=== PATIENT | female | born 1965 | race Caucasian/White ===

== ENCOUNTER → 2020-01-19 10:14 | Outpatient (CLI) | payer BC, SELFPAY ==
--- NOTE | ~2020-01-19 | US_ITS ---
EXAMINATION: US transvaginal DATE: 01/19/2020 11:00 INDICATION: Thickened endometrial complex TECHNIQUE: Multiple transabdominal and endovaginal sonographic images of the pelvis were obtained. COMPARISON: 01/31/2019 FINDINGS: The uterus measures 6.9 x 2.5 x 3.7 cm. The endometrial complex measures 3 mm in thickness which is normal. The ovaries are not visualized. There is no free fluid in the pelvis. IMPRESSION: 1. Unremarkable postmenopausal uterus with normal endometrial complex thickness of 3 mm. Reviewed, dictated and finalized at location H. LTY BALLOON ASSEMBLER AND PACKER
== END ==
PROVIDERS: Visit Provider Nurse Practitioner
DX: R93.89 Abnormal findings on diagnostic imaging of other specified body structures (principal)
CPT/HCPCS: 76830

== ENCOUNTER 2021-05-22 14:52 | Outpatient (CLI) | payer BC, SELFPAY ==
--- NOTE | ~2021-05-22 | MR_ITS ---
EXAMINATION: MR brain/brain stem wo con DATE: 05/22/2021 15:22 INDICATION: Migraine headache. TECHNIQUE: Magnetic resonance imaging (MRI) of the brain and brainstem was performed without intraven ous contrast. Sequences included sagittal and axial T1-weighted FSE, axial diffusion-weighted FS EPI, axial T2*-weighted GRE, axial T2-weighted FLAIR Propeller, and axial T2-weighted Propeller. Apparent diffusion coefficient (ADC) maps were created. COMPARISON: Brain MRI 01/18/2008 FINDINGS: There is no intracranial hemorrhage, acute infarction, or abnormal intracranial mass lesion . The ventricles are normal in size. The mastoid air cells are normal. The orbits are normal. There i s mild mucosal thickening in the ethmoid sinuses. IMPRESSION: 1. Normal brain. Reviewed, dictated and finalized at location A. IMPRESSION: 1. Normal brain.
== END 2021-05-22 14:53 ==
LOC: MICIMG 14:53
PROVIDERS: PCP Internal Medicine; Visit Provider Internal Medicine
DX: G43.909 Migraine, unspecified, not intractable, without status migrainosus (principal)
CPT/HCPCS: 70551

== ENCOUNTER → 2021-05-31 00:25 | Outpatient (CLI) | payer BC, SELFPAY ==
[2021-05-31 14:04] LABS: SARS-CoV-2 RNA PCR Negative
== END ==
PROVIDERS: PCP Internal Medicine; Visit Provider Internal Medicine Gastroenterology
DX: Z01.812 Encounter for preprocedural laboratory examination (principal); Z20.822 Contact with and (suspected) exposure to COVID-19
CPT/HCPCS: C9803; U0003; U0005

== ENCOUNTER 2021-06-04 01:00 | Day surgery (SDC) | payer BC, SELFPAY ==
[2021-05-28 14:54] VITALS: BMI 35.5
--- NOTE | 2021-06-04 08:14 | WPDANESEPPF ---
Anes - Initial Pre Proc Eval Procedure: Operation Date: 06/04/21 11:15 Proposed Procedures p Esophagogastroduodenoscopy & Screening Colonoscopy - Edward Gil MD Date/Time: 06/04/21 08:14 Surgeon: Edward Gil MD Pre Op Diagnosis: GERD, neoplasm screening Patient Data Age: 55 Gender: F Height: 1.57 m Weight: 88.2 kg Allergies Allergy/AdvReac Type Severity Reaction Status Date / Time morphine AdvReac Intermediate Nausea and Verified 06/04/21 10:23 Vomiting COMPAZINE Allergy Severe Cramping Uncoded 06/04/21 10:23 of the Muscles Home Medications Medication Instructions Recorded Confirmed Type omeprazole 20 mg PO DAILY 05/28/21 05/28/21 History sertraline 25 mg PO DAILY 05/28/21 05/28/21 History ubrogepant [Ubrelvy] 50 mg PO ONCE PRN 05/28/21 05/28/21 History Patient hx anesthesia problems: none Family hx anesthesia problems: none Results Review: All pre-operative results and documents have been reviewed as part of the pre-operative evaluation. [facility] Past Medical History Medical History (Updated 06/04/21 @ 08:15 by Tramaine Kohler MD) Chronic GERD Depression Migraine Obesity Family History Family History (Updated 11/02/13 @ 07:13 by DOCTOR UNKNOWN) Father Family history of lung cancer Family history of malignant neoplasm of brain Family history of heart disease in male family member before age 55 Mother Family history of heart disease in male family member before age 55 Social History Social History Smoking status: Never smoker Alcohol intake: current Alcohol use details: drinks rarely - once or twice a year Substance use: never Substance use type: does not use Living arrangements: with family Spiritual care concerns: No Anes - Eval Final PreProcedure Day of Procedure 06/04/21 08:14 Patient weight: obese Heart: regular rate and rhythm Lungs: clear to auscultation and normal air movement Airway: Mallampati scale class II Neurological: alert and oriented Last oral intake: >/= 8 hours ASA classification: II Emergent: no Anesthetic plan: proceed Anesthesia type and monitoring: general GIVS Results Review: All pre-operative results and documents have been reviewed as part of the pre-operative evaluation. Informed Consent: The patient's anesthetic plan and its attendant risks and benefits were discussed with the patient/family/POA. Questions were solicited and answers provided to the satisfaction of the patient/family/POA.
[2021-06-04 10:24] VITALS: BP 115/73; PULSE 84; RESP 18; TEMP 36.3; O2SAT 98
[2021-06-04] MEDS: LACTATED RINGERS 1,000 ML 150 ML IV CONT (10:37)
--- NOTE | 2021-06-04 10:47 | WPDGICN ---
Assessment and Plan Assessment and plan (1) GERD (gastroesophageal reflux disease): Code(s): K21.9 - Gastro-esophageal reflux disease without esophagitis Status: Acute Assessment and Plan: EGD with possible biopsy or dilatation or cautery. (2) Colon cancer screening: Code(s): Z12.11 - Encounter for screening for malignant neoplasm of colon Status: Acute Assessment and Plan: Colonoscopy with possible biopsy or polypectomy or cautery or injection of substances. GI Consult Note Consult date/time: 06/04/21 10:47 HPI: Dinorah Bo is a 55 year old female with chronic acid reflux symptoms. She has been on Prilosec for years. If she skips even 1 dose she has severe symptoms. Basically her symptoms are so our this and indigestion her upper abdomen particularly when she wakes up in her stomach is empty. She also often gets burning in the substernal area but Prilosec does prevent that. She was recently switched to omeprazole but does not feel it is as effective as the [id number] Prilosec. She is due for colon cancer screening. Her last colonoscopy was about 15 years ago and she was diagnosed with irritable bowel syndrome. She does tend to have urge to have a bowel movement almost immediately after most meals Review of Systems Review of Systems: All systems reviewed & are unremarkable except as noted in HPI and below PMFSH Past Medical History Medical History Chronic GERD Depression Migraine Obesity Family History Family History Father Family history of lung cancer Family history of malignant neoplasm of brain Family history of heart disease in male family member before age 55 Mother Family history of heart disease in male family member before age 55 Social History Social History Smoking status: Never smoker Alcohol intake: current Alcohol use details: drinks rarely - once or twice a year Substance use: never Substance use type: does not use Living arrangements: with family Spiritual care concerns: No Meds Home Medications and Allergies Home Medications Medication Instructions Recorded Confirmed Type omeprazole 20 mg PO DAILY 05/28/21 05/28/21 History sertraline 25 mg PO DAILY 05/28/21 05/28/21 History ubrogepant [Ubrelvy] 50 mg PO ONCE PRN 05/28/21 05/28/21 History Allergies Allergy/AdvReac Type Severity Reaction Status Date / Time morphine AdvReac Intermediate Nausea and Verified 06/04/21 10:23 Vomiting COMPAZINE Allergy Severe Cramping Uncoded 06/04/21 10:23 of the Muscles Vital Signs Vital Signs - 24 hr 06/04/21 10:24 Temperature 36.3 C L Pulse Rate 84 Respiratory Rate 18 Blood Pressure 115/73 Pulse Oximetry 98 Exam Const: General: alert Orientation/consciousness: patient oriented x3 Resp: Auscultation: clear to auscultation bilaterally Cardio: Rhythm: regular rhythm GI: GI Palp: Yes Soft to palpation and No Tenderness to palpation present (GI) Neuro: General: patient oriented x3
[2021-06-04 11:48] VITALS: BP 113/63; PULSE 81; RESP 18; O2SAT 97
[2021-06-04 11:58] VITALS: BP 104/68; PULSE 67; RESP 18; O2SAT 98
--- NOTE | 2021-06-04 11:59 | SUR.OPER ---
EGD started at 1123 and ended at 1127. Colonoscopy started at 1136 and ended at 1145.
[2021-06-04 12:08] VITALS: BP 128/81; PULSE 65; RESP 22; O2SAT 100
== END 2021-06-04 12:28 | disposition home or self-care (01) ==
PROVIDERS: PCP Internal Medicine; Visit Provider Internal Medicine Gastroenterology
PROC: 0DJ08ZZ Inspection of Upper Intestinal Tract, Via Natural or Artificial Opening Endoscopic (ICD-10-PCS; CPT 43235; principal; 2021-06-04 11:15)
DX: Z12.11 Encounter for screening for malignant neoplasm of colon (principal); D12.4 Benign neoplasm of descending colon; K31.7 Polyp of stomach and duodenum; K21.9 Gastro-esophageal reflux disease without esophagitis; F32.9 Major depressive disorder, single episode, unspecified; E66.9 Obesity, unspecified; Z68.34 Body mass index [BMI] 34.0-34.9, adult
CPT/HCPCS: 45381; 45385; 43251; 88305; J2704; J7120

== ENCOUNTER → 2021-08-01 09:59 | Outpatient (CLI) | payer BC, SELFPAY ==
--- NOTE | ~2021-08-01 | DEXA_ITS ---
Bone Density Report Name: KIRSTEN POWELL Age: 56 Sex: Female Ethnicity: White Date of : 1965 Indication: osteopenia; postmenopausal Referring Provider: ApoorvaLisette Study: Bone densitometry was performed. Exam Date: August 01, 2021 Accession number: [id number] Bone Density: Region BMD T-score Z-score Classification AP Spine (L1-L4) 0.812 -2.1 -1.1 Osteopenia Femoral Neck (Left) 0.835 -0.1 0.9 Normal Total Hip (Left) 0.769 -1.4 -0.7 Osteopenia Femoral Neck (Right) 0.672 -1.6 -0.5 Osteopenia Total Hip (Right) 0.769 -1.4 -0.7 Osteopenia Total Hip Mean 0.769 -1.4 -0.7 Osteopenia World Health Organization criteria for BMD impression classify patients as: Normal (T-score at or above -1.0), Osteopenia (T-score between -1.0 and -2.5), or Osteoporosis (T-score at or below -2.5). 10-year Fracture Risk(1): Major Osteoporotic Fracture 6.1% Hip Fracture 0.5% Reported Risk Factors: [place] (), Neck BMD=0.672, BMI=35.6 (1) FRAX(R) Version 3.08. Fracture probability calculated for an untreated patient. Fracture probability may be lower if the patient has received treatment. Previous Exams: Region Exam Age BMD T-score BMD Change BMD Change Date g/cm2 vs Baseline vs Previous AP Spine(L1-L4) 08/01/2021 56 0.812 -2.1 -0.039* -0.039* 01/31/2019 53 0.851 -1.8 Total Hip(Left) 08/01/2021 56 0.769 -1.4 -0.021 -0.021 01/31/2019 53 0.790 -1.2 Total Hip(Right) 08/01/2021 56 0.769 -1.4 -0.007 -0.007 01/31/2019 53 0.776 -1.4 *Denotes significance at 95% confidence level, LSC for AP Spine = 0.022 g/cm2, LSC for Total Hip = 0.027 g/cm2 Clinical Information Provided by Patient: Patient maximum height was 62 Menopause Age: 52 No regular weight bearing exercise Drinks caffeinated beverages Onset of menses at age 11 Number of children 1 Impression: The patient has low bone mass, based on the Total Spine T-score. The patient has an estimated ten-year risk of hip fracture of 0.5% and an estimated ten-year risk of major fracture of 6.1%, based on the WHO FRAX algorithm. The BMD for the AP Spine(L1-L4) decreased, changing by -0.039 since the last DXA exam. Discussion: BONE DENSITY IS LOW AT ONE OR MORE SKELETAL SITES. This patient's lowest T-score is low at one or more skeletal sites. It meets the World Health Organization's (WHO) criteria for ?low bone mass? (T-score betw
--- NOTE | ~2021-08-01 | MM_ITS ---
EXAMINATION: MM scrn jefferson implant BI w adalid HISTORY: Screening mammogram TECHNIQUE: Craniocaudal and mediolateral oblique 3-D tomosynthesis images with implant displacement a nd synthetic 2-D images were generated. Craniocaudal and mediolateral oblique views of the breasts wi thout implant displacement were obtained using full field digital mammography. CAD analysis was submi tted and interpreted. COMPARISON: 01/31/2019 diagnostic bilateral mammogram and limited right breast ultrasound examination bilateral implant screening mammogram BREAST PARENCHYMAL COMPOSITION: There are scattered areas of fibroglandular density. FINDINGS: Status post bilateral augmentation mammoplasty. Stable circumscribed approximately 3.6 x 5.6 mm opacity is noted posteriorly in the mid to lower oute r right breast, stable since 01/31/2019. There is no evidence of suspicious mass, calcification, or a rchitectural distortion to suggest malignancy in either breast. There has been no suspicious interval change. IMPRESSION: 1. No mammographic evidence of malignancy. 2. Recommend routine screening mammography in one year. BI-RADS Category 2: Benign finding(s). Reviewed, dictated and finalized at location A.
== END ==
PROVIDERS: PCP Internal Medicine; Visit Provider Internal Medicine
DX: Z12.31 Encounter for screening mammogram for malignant neoplasm of breast (principal); Z13.820 Encounter for screening for osteoporosis; Z78.0 Asymptomatic menopausal state; M85.88 Other specified disorders of bone density and structure, other site; M85.851 Other specified disorders of bone density and structure, right thigh; M85.852 Other specified disorders of bone density and structure, left thigh
CPT/HCPCS: 77063; 77067; 77080

== ENCOUNTER → 2023-02-02 09:20 | Outpatient (CLI) | payer BC, SELFPAY ==
--- NOTE | ~2023-02-02 | MM_ITS ---
EXAMINATION: MM diag jefferson implant BI w adalid HISTORY: Bilateral breast pain TECHNIQUE: ML, MLO and CC implant displaced 3-D tomosynthesis images of both breasts. were performed and synthetic 2-D images were generated. ML, MLO and CC implant views. CAD analysis was submitted and interpreted. COMPARISON: 08/01/2021ilateralimplantscreening mammogram 19,019 diagnostic right mammogram and ri t breast ultrasound FINDINGS: Bilateral subpectoral saline implants. In the posterior lower outer right breast there is stable or slightly enlarged circumscribed approxim ately 4.5 x 7.5 mm opacity with halo sign, benign in mammographic appearance. No suspicious mass, architectural distortion, malignant calcification, skin thickening or retraction or significant new or developing density of either breast is noted. IMPRESSION: 1. Benign finding 2. Routine annual mammographic screening is recommended BI-RADS Category 2: Benign finding(s). Reviewed, dictated and finalized at location A. ROOM SALES CONSULTANT
== END ==
PROVIDERS: PCP Nurse Practitioner; Visit Provider Nurse Practitioner
DX: N64.4 Mastodynia (principal)
CPT/HCPCS: 77062; 77066; G0279

== ENCOUNTER 2023-02-02 09:28 | Outpatient (CLI) | payer BC, SELFPAY ==
--- NOTE | ~2023-02-02 | MR_ITS ---
EXAMINATION: MR brain/brain stem wo con DATE: 02/02/2023 10:54 INDICATION: Migraine headache. TECHNIQUE: Magnetic resonance imaging (MRI) of the brain and brainstem was performed without intraven ous contrast. COMPARISON: Brain MRI 05/22/2021 FINDINGS: There are a few foci of nonspecific increased T2-weighted signal intensity in the cerebral white matter, which is within normal limits for the patient's age. There is no intracranial hemorrhag e, acute infarction, or abnormal intracranial mass lesion. The ventricles are normal in size. The par anasal sinuses are clear. The orbits are normal. The mastoid air cells are normal. IMPRESSION: 1. Normal brain. Reviewed, dictated and finalized at location A. SETTER IMPRESSION: 1. Normal brain.
== END 2023-02-02 09:29 ==
PROVIDERS: PCP Internal Medicine; Visit Provider Internal Medicine
DX: G43.909 Migraine, unspecified, not intractable, without status migrainosus (principal)
CPT/HCPCS: 70551

== ENCOUNTER 2023-03-05 20:12 | Emergency (ER) | payer BC, SELFPAY ==
--- NOTE | ~2023-03-05 | XR_ITS ---
EXAMINATION: XR chest 2V DATE: 03/05/2023 20:31 INDICATION: Chest pain TECHNIQUE: PA and lateral views of the chest were obtained. COMPARISON: Chest radiograph dated 08/04/2007 FINDINGS: The lungs remain clear with no focal airspace opacities, pulmonary edema, pleural effusion or pneumot horax. The cardiomediastinal silhouette is normal. Visualized bones and soft tissues are unremarkable . IMPRESSION: 1. No acute cardiopulmonary disease. Reviewed, dictated and finalized at location A. IT MANAGER
--- NOTE | ~2023-03-05 | CT_ITS ---
EXAMINATION: CTA chest PE abdomen pel DATE: 03/05/2023 23:42 INDICATION: Chest pain. Flank pain. TECHNIQUE: Computed tomography angiography (CTA) of the chest was performed with 100 mL Omnipaque-350 intravenous contrast timed to evaluate the pulmonary arteries. Coronal maximum intensity projection 3D-reconstructions were created by the technologist. Computed tomography (CT) of the abdomen and pelv is was performed with intravenous contrast. Automated exposure control and iterative reconstruction t echnique were employed. The dose-length product was 1286.98 mGy-cm. COMPARISON: CT abdomen 10/22/2005 FINDINGS: CTA chest: The lungs demonstrate mild atelectasis. No pleural effusion. The heart size is normal. No pericardial effusion. There is no pulmonary embolus. There are bilateral breast implants. There is mi ld thoracic spondylosis. CT abdomen and pelvis: The liver, gallbladder, spleen, pancreas, adrenal glands, and right kidney are normal. There is mild left hydronephrosis and hydroureter. There is a 5 mm stone at left ureterovesi cular junction. There are no dilated loops of bowel. The appendix is normal. There is a left inguinal hernia containing fat. There are no pathologically enlarged lymph nodes. There is no free intraperit hawkins fluid. There is mild lumbar spondylosis. IMPRESSION: 1. No pulmonary embolus. 2. 5 mm stone at left ureterovesicular junction with mild left hydronephrosis and hydroureter. Reviewed, dictated and finalized at location A. NE MERCHANDISER IMPRESSION: 1. No pulmonary embolus. 2. 5 mm stone at left ureterovesicular junction with mild left hydronephrosis a nd hydroureter.
--- NOTE | 2023-03-05 20:13 | ECG_ITS ---
Measurements Intervals [place] Rate: 69 P: 56 CO: 170 QRS: -23 QRSD: 86 T: 29 QT: 394 QTc: 424 Interpretive Statements SINUS RHYTHM BORDERLINE LEFT AXIS DEVIATION [QRS AXIS < -20] NONSPECIFIC T-WAVE ABNORMALITY NO PREVIOUS ECG AVAILABLE FOR COMPARISON Electronically Signed On 03-07-2023 14:21:53 CLINICAL RESEARCH SCIENTIST by Valdez Posada M.D.
[2023-03-05 20:18] VITALS: BP 142/95; PULSE 76; RESP 20; TEMP 36.7; O2SAT 96
[2023-03-05 20:26] LABS: Basophils Absolute Auto 0.1 K/mm3 (0.0-0.1); Basophils Percent Auto 0.6 % (0.2-1.2); Eosinophils Percent Auto 0.3 % (0-4.4); Hematocrit 38.6 % (37.0-47.0); Hemoglobin 12.1 g/dL (12.0-15.0); Immature Granulocyte Absolute 0.02 K/mm3 (0.00-0.031); Immature Granulocyte Percent A 0.2 % (0-0.5); Lymphocytes Absolute Auto 1.84 K/mm3 (0.9-3.2); Lymphocytes Percent Auto 21.3 % (18.3-44.2); Mean Corpuscular HGB Conc 31.3 g/dl (32-36); Mean Corpuscular Hemoglobin 27.7 pg (26-34); Mean Corpuscular Volume 88.3 fl (80-100); Mean Platelet Volume 10.2 fl (7.4-10.4); Monocytes Absolute Auto 0.5 K/mm3 (0.1-0.6); Monocytes Percent Auto 5.6 % (2.6-8.5); Neutrophils Absolute Auto 6.2 K/mm3 (1.3-6.7); Platelet Count Result 285 k/mm3 (150-375); Red Blood Count 4.37 M/mm3 (4.2-5.4); Red Cell Distribution Width 13.9 % (11.5-14.5); White Blood Count 8.6 K/mm3 (4.5-10.0)
[2023-03-05 20:35] LABS: Alanine Aminotransferase 23 U/L (6-35); Alkaline Phosphatase 102 U/L (38-126); Anion Gap 6 mmol/L (8-16); Aspartate Amino Transferase 27 U/L (14-36); Bilirubin,Total 0.4 mg/dL (0.2-1.3); Blood Urea Nitrogen 15 mg/dL (7-17); Calcium 8.8 mg/dL (8.4-10.2); Carbon Dioxide 26 mmol/L (22-30); Chloride 107 mmol/L (98-107); Estimated CRCL calculation 55 ml/min; Estimated Glomerular Filt Rate 57; Glucose 111 mg/dL (65-110); Lipase 127 U/L (23-300); Potassium 3.7 mmol/L (3.4-5.0); Sodium 139 mmol/L (137-145)
[2023-03-05 20:36] LABS: Prothrombin Time 13.4 Seconds (11.1-14.7)
[2023-03-05 20:37] LABS: Partial Thromboplastin Time 26.6 SECONDS (22.3-36.8)
[2023-03-05 20:46] LABS: Troponin I < 0.012 ng/mL (0.000-0.034)
--- NOTE | 2023-03-05 23:13 | ECG_ITS ---
Measurements Intervals [place] Rate: 87 P: 58 OR: 185 QRS: -26 QRSD: 87 T: 31 QT: 362 QTc: 436 Interpretive Statements SINUS RHYTHM BORDERLINE LEFT AXIS DEVIATION [QRS AXIS < -20] COMPARED TO ECG 03/05/2023 20:17:48 NO SIGNIFICANT CHANGES Electronically Signed On 03-07-2023 14:23:48 BOBBIN MARKER by Valdez Posada M.D.
[2023-03-05 23:58] LABS: Troponin I < 0.012 ng/mL (0.000-0.034)
[2023-03-06] MEDS: HYDROmorphone HCL INJ (*CRX) 1 MG/ML SYR IV PUSH (00:39)
[2023-03-06 00:40] VITALS: PULSE 94; RESP 15; O2SAT 100
[2023-03-06 02:22] VITALS: BP 124/54; PULSE 84; RESP 15; O2SAT 100
[2023-03-06 03:58] LABS: Troponin I < 0.012 ng/mL (0.000-0.034)
--- NOTE | 2023-03-06 04:16 | ED.GENADULT ---
HPI - General Adult General Chief complaint: Chest Pain Stated complaint: chest pain, abd pain, back pain Time Seen by Provider: 03/05/23 22:56 History of Present Illness HPI narrative: Patient is a 57-year-old female who presents emergency department chief complaint of left flank and squeezing sensation in the chest. Patient reports he has had some nausea and vomiting head reports that she also felt a little short of breath with this. The patient reports the pain does radiate into the left side of the abdomen. Related Data Home Medications Medication Instructions Recorded Confirmed omeprazole 20 mg tablet,delayed 20 mg PO DAILY 05/28/21 05/28/21 release sertraline 25 mg tablet 25 mg PO DAILY 05/28/21 05/28/21 ubrogepant 50 mg tablet (Ubrelvy) 50 mg PO ONCE PRN Migraine Headache 05/28/21 05/28/21 Allergies Allergy/AdvReac Type Severity Reaction Status Date / Time morphine AdvReac Intermediate Nausea and Verified 03/05/23 20:12 Vomiting COMPAZINE Allergy Severe Cramping Uncoded 03/05/23 20:12 of the Muscles Review of Systems Review of Systems: A 10 system review of systems was completed on the patient and is negative except for what is stated in the HPI. Nursing and ancillary documentation was reviewed. PMFSH Past Medical History Medical History Chronic GERD Depression Migraine Obesity Family History Family History Father Family history of lung cancer Family history of malignant neoplasm of brain Family history of heart disease in male family member before age 55 Mother Family history of heart disease in male family member before age 55 Social History Social History Smoking status: Never smoker Alcohol intake: current Alcohol use details: drinks rarely - once or twice a year Substance use: never Substance use type: does not use Living arrangements: with family Spiritual care concerns: No Exam Narrative: GENERAL: Well-appearing, well-nourished, and in no acute distress. HEAD: Normocephalic, atraumatic. EYES: PERRLA and EOMI. ENT: Nares clear, no rhinorrhea or epistaxis. Mucous membranes moist. NECK: Supple. CHEST: Clear to auscultation. No respiratory distress. HEART: Regular rate and rhythm. No murmur heard. Normal peripheral pulses. ABDOMEN: Soft, nontender, nondistended, normal active bowel sounds. EXTREMITIES: Normal range of motion. No edema. SKIN: Warm, dry, no rash. NEURO: No focal deficits. Alert and oriented x3. PSYCH: Normal mood and affect. Course Course Emergency Course: Patient received IV pain medications in the emergency department laboratory studies were obtained which were within normal limits CTA of the chest with an abdomen pelvis CT showed a 3 mm left UVJ stone with mild hydroureteronephrosis. Vital Signs Vital signs: Vital Signs Temperature 36.7 C 03/05/23 20:18 Pulse Rate 76 03/05/23 20:18 Respiratory Rate 20 03/05/23 20:18 Blood Pressure 142/95 H 03/05/23 20:18 Pulse Oximetry 96 03/05/23 20:18 Oxygen Delivery Room Air 03/05/23 20:18 Temperature 36.2 C L 03/06/23 04:34 Pulse Rate 77 03/06/23 04:34 Respiratory Rate 17 03/06/23 04:34 Blood Pressure 125/63 03/06/23 04:34 Pulse Oximetry 95 03/06/23 04:34 Oxygen Delivery Room Air 03/05/23 20:18 Medical Decision Making Vital Signs Vital Signs: Vital Signs Temperature 36.7 C 03/05/23 20:18 Pulse Rate 76 03/05/23 20:18 Respiratory Rate 20 03/05/23 20:18 Blood Pressure 142/95 H 03/05/23 20:18 Pulse Oximetry 96 03/05/23 20:18 Oxygen Delivery Room Air 03/05/23 20:18 Temperature 36.2 C L 03/06/23 04:34 Pulse Rate 77 03/06/23 04:34 Respiratory Rate 17 03/06/23 04:34 Blood Pressure 125/63 03/06/23 04:34
[2023-03-06 04:34] VITALS: BP 125/63; PULSE 77; RESP 17; TEMP 36.2; O2SAT 95
[2023-03-06 05:12] LABS: Appearance Urine Clear (Clear); Bacteria Urine None Seen /hpf; Bilirubin Urine Negative (Negative); Blood Urine 3+ (Negative); Color Urine Yellow (Yellow); Glucose Urine UA Negative (Negative); Ketones Urine Negative (Negative); Leukocyte Esterase Ur Negative LEU/UL (Negative); Nitrate Urine Negative (Negative); Non Pathogenic Casts 0-2; Protein Urine Negative (Negative); RBC Urine >100 /hpf (0-2); Specific Grav Ur 1.019 (1.001-1.035); Squamous Epithelial Cell Urine None seen /hpf (Few); Urobilinogen Urine 0.2 mg/dL (<2.0); WBC Urine 0-5 /hpf; pH Urine 6.5 (5.0-9.0)
[2023-03-06 05:16] LABS: Add Urine Microscopic? YES
[2023-03-06 05:40] VITALS: BP 122/68; PULSE 78; RESP 16; O2SAT 100
== END 2023-03-06 05:41 | disposition home or self-care (01) ==
PROVIDERS: Student in an Organized Health Care Education/Training Program; Emergency Provider Emergency Medicine; PCP Internal Medicine
DX: N13.2 Hydronephrosis with renal and ureteral calculous obstruction (principal); R07.89 Other chest pain; E66.9 Obesity, unspecified; Z68.32 Body mass index [BMI] 32.0-32.9, adult; K21.9 Gastro-esophageal reflux disease without esophagitis; F32.A Depression, unspecified; R94.31 Abnormal electrocardiogram [ECG] [EKG]
CPT/HCPCS: 36415; 71046; 71275; 74177; 80053; 81001; 83690; 84484; 85025; 85610; 85730; 93005; 96374; 99284; J1170; Q9967